=== PATIENT | female | born 1990 | race Caucasian/White ===

== ENCOUNTER 2018-11-28 05:15 | Inpatient (IN) | payer MEDICAID ==
[2018-11-28] MEDS ORDERED: CEFAZOLIN 2 GM/50 ML (PMX) 50 ML IVPB (06:00)
[2018-11-28] MEDS ORDERED: CARBOPROST 250 MCG INJ IM (06:00)
[2018-11-28] MEDS ORDERED: OXYTOCIN 30 UNITS/LR 500 ML IV (06:00)
[2018-11-28] MEDS ORDERED: MISOPROSTOL 200 MCG TAB PR ×2 (06:00→08:00)
[2018-11-28] MEDS ORDERED: METHYLERGONOVINE 0.2 MG INJ IM (06:00)
[2018-11-28 06:09] LABS: ADD MAN DIFF? NO
[2018-11-28 06:11] LABS: BASOPHILS % 0.4 % (0.0-2.0); EOSINOPHILS # 0.2 10^3/ul (0.0-0.5); EOSINOPHILS % 1.8 % (0.0-7.0); HEMATOCRIT 34.2 % (37.0-47.0); HEMOGLOBIN 11.7 g/dl (12.0-16.0); LYMPHOCYTES # 2.4 10^3/ul (0.8-2.9); LYMPHOCYTES % 22.4 % (15.0-51.0); MEAN CORPUSCULAR HEMOGLOBIN 28.7 pg (29.0-33.0); MEAN CORPUSCULAR HGB CONC 34.2 g/dl (32.0-37.0); MEAN PLATELET VOLUME 10.3 fl (7.4-10.4); MONOCYTE # 0.7 10^3/ul (0.3-0.9); MONOCYTES % 6.2 % (0.0-11.0); NEUTROPHIL # 7.2 10^3/ul (1.6-7.5); NEUTROPHILS % 68.4 % (39.0-77.0); PLATELET COUNT 230 10^3/UL (140-415); RED BLOOD COUNT 4.07 10^6/ul (4.20-5.40); RED CELL DISTRIBUTION WIDTH 13.2 % (11.5-14.5)
[2018-11-28 06:11] LABS: WHITE BLOOD COUNT 10.6 10^3/ul (4.8-10.8)
[2018-11-28 06:30] LABS: PROTIME 12.3 Sec (11.9-14.9)
[2018-11-28 06:31] LABS: PARTIAL THROMBOPLASTIN TIME 29.2 Sec (23.0-35.0)
[2018-11-28 07:04] LABS: HEPATITIS B SURFACE ANTIGEN NEGATIVE (NEGATIVE)
[2018-11-28] MEDS: LACTATED RINGER'S 1,000 ML IV ×3 (07:50→16:05)
[2018-11-28] MEDS ORDERED: morphine SULFATE/PF (10 MG/10 ML) INJ (07:55)
[2018-11-28] MEDS ORDERED: FENTAnyl 50 MCG/ML VIAL (07:55)
[2018-11-28] MEDS ORDERED: ZOLPIDEM 5 MG TAB PO (08:00)
[2018-11-28] MEDS ORDERED: HYDROmorphONE 0.5 MG/0.5 ML SYG IV ×2 (08:00)
[2018-11-28] MEDS ORDERED: DIPHENHYDRAMINE 50 MG INJ IV (08:00)
[2018-11-28] MEDS ORDERED: NA PHOSPHATE/BIPHOS 133 ML ENEMA PR (08:00)
[2018-11-28] MEDS ORDERED: LANOLIN HPA 1 PKT TOP (08:00)
[2018-11-28] MEDS ORDERED: NALOXONE (0.4 MG/ML) INJ IV (08:00)
[2018-11-28] MEDS ORDERED: OXYCODONE/ACETAMINOPHEN (5/325) TAB PO ×2 (08:00)
[2018-11-28] MEDS ORDERED: FAMOTIDINE 20 MG INJ (08:13)
[2018-11-28] MEDS ORDERED: DEXAMETHASONE 4 MG/ML 1 ML INJ (08:13)
[2018-11-28] MEDS: SENNA/DOCUSATE NA (8.6MG/50MG) TAB PO ×2 (09:00→21:13)
[2018-11-28] MEDS: OXYTOCIN 30 UNITS/LR 500 ML IV ×2 (09:43→11:30)
[2018-11-28] MEDS: ONDANSETRON 4 MG INJ IV (10:48)
[2018-11-28] MEDS: IBUPROFEN 600 MG TAB PO ×2 (12:00→18:00)
[2018-11-28 15:11] LABS: RAPID PLASMA REAGIN NONREACTIVE (NR)
[2018-11-29] MEDS: LACTATED RINGER'S 1,000 ML IV ×4 (01:35→21:37)
[2018-11-29 04:57] LABS: ADD MAN DIFF? NO
[2018-11-29 05:04] LABS: BASOPHILS % 0.3 % (0.0-2.0); EOSINOPHILS % 0.3 % (0.0-7.0); HEMATOCRIT 28.8 % (37.0-47.0); HEMOGLOBIN 9.7 g/dl (12.0-16.0); LYMPHOCYTES # 2.4 10^3/ul (0.8-2.9); LYMPHOCYTES % 17.6 % (15.0-51.0); MEAN CORPUSCULAR HEMOGLOBIN 28.7 pg (29.0-33.0); MEAN CORPUSCULAR HGB CONC 33.7 g/dl (32.0-37.0); MEAN CORPUSCULAR VOLUME 85.2 fl (82.0-101.0); MONOCYTE # 0.9 10^3/ul (0.3-0.9); NEUTROPHILS % 74.3 % (39.0-77.0); PLATELET COUNT 197 10^3/UL (140-415); RED BLOOD COUNT 3.38 10^6/ul (4.20-5.40); RED CELL DISTRIBUTION WIDTH 13.2 % (11.5-14.5)
[2018-11-29 05:04] LABS: WHITE BLOOD COUNT 13.5 10^3/ul (4.8-10.8)
[2018-11-29] MEDS: IBUPROFEN 600 MG TAB PO ×5 (05:40→23:56)
[2018-11-29] MEDS: KETOROLAC 30 MG INJ IV (05:41)
[2018-11-29] MEDS: SENNA/DOCUSATE NA (8.6MG/50MG) TAB PO ×2 (11:42→23:56)
[2018-11-30] MEDS: LACTATED RINGER'S 1,000 ML IV (05:37)
[2018-11-30] MEDS: IBUPROFEN 600 MG TAB PO ×3 (06:00→18:30)
[2018-11-30] MEDS: SENNA/DOCUSATE NA (8.6MG/50MG) TAB PO ×2 (10:21→21:11)
[2018-12-01] MEDS: IBUPROFEN 600 MG TAB PO ×4 (00:53→17:35)
[2018-12-01] MEDS: SENNA/DOCUSATE NA (8.6MG/50MG) TAB PO (08:46)
[2018-12-01] MEDS: MEASLES,MUMPS,RUBELLA VACCINE INJ SC* (09:00)
[2018-12-01] MEDS: DIPHTH/TET/ACEL PERTUSS (ADULT) 0.5 ML VIAL IM* (09:00)
== END 2018-12-01 19:20 | disposition home or self-care (01) | DRG 785 ==
LOC: L-D 05:15 → MS1 12:10 → L-D 12:15 → MS1 12:17
PROVIDERS: Specialist
PROC: 10D00Z1 Extraction of Products of Conception, Low, Open Approach (ICD-10-PCS; principal; 2018-11-28 07:30)
PROC: 0UB70ZZ Excision of Bilateral Fallopian Tubes, Open Approach (ICD-10-PCS; 2018-11-28 07:30)
DX: O34.211 Maternal care for low transverse scar from previous cesarean delivery (principal); Z3A.49 Greater than 42 weeks gestation of pregnancy; Z37.0 Single live birth; Z30.2 Encounter for sterilization
CPT/HCPCS: 85025; 85610; 85730; 86592; 86850; 86900; 86901; 87340; 88302; 90715; 99464